=== PATIENT | female | born 1960 | race Caucasian/White ===

== ENCOUNTER 2016-11-04 11:24 | Emergency (ER) | payer MEDICARE, OTHER ==
[~2016-11-04] VITALS: Ht 157.5 cm; Wt 93.0 kg
[~2016-11-04 11:24] MED LIST: CLON.1 PO; CLON1TAB PO; METO50TA PO; MEVA40TA PO; PERC7.5T13 PO; TRAZ300T2 PO; VITA500015 PO; VORT20TA PO; Z.0.OXYGENDME NC
[2016-11-04 11:26] VITALS: BP 142/85; PULSE 92; RESP 20; TEMP 97.9; O2SAT 92
[2016-11-04] MEDS ORDERED: SODIUM CHLOR 0.9% 1000 ML INJ 1,000 ML IV SCH (11:54)
--- NOTE | 2016-11-04 11:57 | PD ---
HPI Chief Complaint: GI Complaint Time Seen by Provider: 11:57 Travel History International Travel<30 days: No Contact w/Intl Traveler<30days: No Traveled to known affect area: No History of Present Illness HPI 56-year-old female presents to the emergency department with 3 week history of constipation, generalized weakness, and worsening inability to keep down solids. Patient is status post gastric bypass in May 2016. Patient states she is able to drink fluids without difficulty, but any type of solids are not tolerated. Dr. Jean performed a gastric bypass in May 2016. Patient saw him approximately one month ago. Patient states he started to have symptoms at that time but didn't report it to him. Patient denies fever, chills , or urinary symptoms. Patient denies chest pain or shortness of breath. PFSH Past Medical History Blood Disorders: No Bipolar Disorder: Yes (DX 5-6 MONTHS AGO BY [facility]) Anxiety: Yes Depression: Yes Cancer: No Cardiovascular Problems: No Diabetes: No Diminished Hearing: No Endocrine: No Genitourinary: No Hepatitis: No Hiatal Hernia: No Hypertension: Yes (PT STATES SHE SEES DR. GATES AND TAKES CLONIDINE) Immune Disorder: No Musculoskeletal: Yes (NECK, BACK, ARTHRITIS) Neurologic: No Psychiatric: Yes (PT STATES DEPRESSION AND ANXIETY) Reproductive: No Respiratory: Yes (SLEEP APNEA, C PAP) Immunizations Current: Yes Schizophrenia: Yes Thyroid Disease: No ?: Not Menopausal: No : 2 Para: 2 Miscarriage: 2 : 1 Dilation and Curettage (D&C): Yes (WITH MY MISCARRIAGE) Past Surgical History Abdominal Surgery: Yes (CHOLECYSTECTOMY) AICD: No Section: Yes Cholecystectomy: Yes (GALLBLADDER REMOVED) Joint Replacement: No Pacemaker: No Tonsillectomy: Yes Social History Alcohol Use: Yes (DRANK A COUPLE (7) HEINIKINS AND A QUART OF BEER) Tobacco Use: Yes Substance Use: Yes (ETOH,COCAINE) Allergies-Medications (Allergen,Severity, Reaction): Coded Allergies: No Known Allergies (Unverified , 11/04/16) Reported Meds & Prescriptions Reported Meds & Active Scripts Active Reported Vitamin B-12 (Cyanocobalamin) 1,000 Mcg Tab 1,000 Mcg PO DAILY Calcium 500 Mg Tab 1,000 Mg PO HS [Sleeping Pill] 1 Tab PO HS PRN Percocet (Oxycodone-Acetaminophen) 7.5-325 mg Tab 1 Tab PO TID PRN Metoprolol Tartrate 50 Mg Tab 50 Mg PO BID Lovastatin 40 Mg Tab 40 Mg PO HS Catapres (Clonidine) 0.1 Mg Tab 0.2 Mg PO HS Catapres (Clonidine) 0.1 Mg Tab 0.1 Mg PO DAILY Klonopin (Clonazepam) 1 Mg Tab 1 Mg PO BID Vitamin D3 (Cholecalciferol) 5,000 Unit Cap 5,000 Units PO DAILY Review of Systems Except as stated in HPI: all other systems reviewed are Neg General / Constitutional: No: Fever Eyes: No: Visual changes HENT: No: Headaches Cardiovascular: No: Chest Pain or Discomfort Respiratory: No: Shortness of Breath Gastrointestinal: Positive: Nausea, Vomiting, Abdominal Pain (with solid food.) Genitourinary: No: Dysuria Musculoskeletal: No: Pain Skin: No Rash Neurologic: No: Weakness Psychiatric: No: Depression Endocrine: No: Polydipsia Hematologic/Lymphatic: No: Easy Bruising Physical Exam Narrative GENERAL: Patient appears in no acute distress. SKIN: Warm and dry. Normal color. Somewhat poor turgor. Mouth tenting. HEAD: Atraumatic. Normocephalic. EYES: Pupils equal and round. No scleral icterus. No injection or drainage. ENT: No nasal bleeding or discharge. Mucous membranes pink and moist. NECK: Trachea midline. No JVD. CARDIOVASCULAR: Regular rate and rhythm. RESPIRATORY: No accessory muscle use. Clear to auscultation. Breath sounds equal bilaterally. GASTROINTESTINAL: Abdomen soft, non-tender, nondistended. Hepatic and splenic margins not palpable. MUSCULOSKELETAL: Extremities without clubbing, cyanosis, or edema. No obvious deformities. NEUROLOGICAL: Awake and alert. No obvious cranial nerve deficits. Motor grossly within normal limits. Five out of 5 muscle strength in the arms and legs. Normal speech. PSYCHIATRIC: Appropriate mood and affect; insight and judgment normal. Data Data Last Documented VS Vital Signs Date Time Temp Pulse Resp B/P Pulse Ox O2 Delivery O2 Flow Rate FiO2 11/04/16 14:04 82 16 141/78 96 Room Air 11/04/16 11:26 97.9 Orders Complete Blood Count With Diff (11/04/16 11:54) Comprehensive Metabolic Panel (11/04/16 11:54) Lipase (11/04/16 11:54) Prothrombin Time / Inr (Pt) (11/04/16 11:54) Act Partial Throm Time (Ptt) (11/04/16 11:54) Urinalysis - C+S If Indicated (11/04/16 11:54) Iv Access Insert/Monitor (11/04/16 11:54) Ecg Monitoring (11/04/16 11:54) Oximetry (11/04/16 11:54) NPO (11/04/16 11:54) Sodium Chlor 0.9% 1000 Ml Inj (Ns 1000 M (11/04/16 11:54) Sodium Chloride 0.9% Flush (Ns Flush) (11/04/16 12:00) Electrocardiogram (11/04/16 11:54) Upper Gi Series With [employer] Field Assistant (11/04/16 ) Urine Culture (11/04/16 12:00) Labs Laboratory Tests Test 11/04/16 12:00 White Blood Count 5.0 TH/MM3 Red Blood Count 4.14 MIL/MM3 Hemoglobin 13.2 GM/DL Hematocrit 39.5 % Mean Corpuscular Volume 95.3 FL Mean Corpuscular Hemoglobin 31.8 PG Mean Corpuscular Hemoglobin 33.4 % Concent Red Cell Distribution Width 15.0 % Platelet Count 159 TH/MM3 Mean Platelet Volume 8.8 FL Neutrophils (%) (Auto) 57.4 % Lymphocytes (%) (Auto) 31.6 % Monocytes (%) (Auto) 8.7 % Eosinophils (%) (Auto) 1.5 % Basophils (%) (Auto) 0.8 % Neutrophils # (Auto) 2.9 TH/MM3 Lymphocytes # (Auto) 1.6 TH/MM3 Monocytes # (Auto) 0.4 TH/MM3 Eosinophils # (Auto) 0.1 TH/MM3 Basophils # (Auto) 0.0 TH/MM3 CBC Comment DIFF FINAL Differential Comment Prothrombin Time 11.6 SEC Prothromb Time International 1.0 RATIO Ratio Activated Partial 30.3 SEC Thromboplast Time Urine Color DARK-YELLOW Urine Turbidity HAZY Urine pH 5.5 Urine Specific [place] 1.033 Urine Protein 30 mg/dL Urine Glucose (UA) NEG mg/dL Urine Ketones TRACE mg/dL Urine Occult Blood NEG Urine Nitrite NEG Urine Bilirubin NEG Urine Urobilinogen 4.0 MG/DL Urine Leukocyte Esterase LARGE Urine RBC 4 /hpf Urine WBC 49 /hpf Urine Squamous Epithelial 16 /hpf Cells Urine Transitional Epithelial 5 /hpf Cells Urine Renal Epithelial Cells <1 /hpf Urine Bacteria MOD /hpf Urine Mucus MANY /lpf Microscopic Urinalysis Comment CULTURE INDICATED Sodium Level 141 MEQ/L Potassium Level 3.6 MEQ/L Chloride Level 105 MEQ/L Carbon Dioxide Level 30.9 MEQ/L Anion Gap 5 MEQ/L Blood Urea Nitrogen 10 MG/DL Creatinine 0.63 MG/DL Estimat Glomerular Filtration 98 ML/MIN Rate Random Glucose 83 MG/DL Calcium Level 8.6 MG/DL Total Bilirubin 0.4 MG/DL Aspartate Amino Transf 13 U/L (AST/SGOT) Alanine Aminotransferase 28 U/L (ALT/SGPT) Alkaline Phosphatase 99 U/L Total Protein 6.3 GM/DL Albumin 3.0 GM/DL Lipase 33 U/L [facility] Medical Decision Making Medical Screen Exam Complete: Yes Emergency Medical Condition: Yes Differential Diagnosis Status post gastric bypass. Increasing intolerance to solid foods. Nausea, vomiting, constipation. Narrative Course Patient is medically stable at time of exam. Labs ordered including CBC, CMP, PT PTT and INR. Urinalysis, lipase. Patient is given normal sodium bolus of 1000 mL IV. Call was placed to Dr. Marroquin who is covering for Dr. Jean and the patient is discussed. Dr. Marroquin recommends an upper GI series to evaluate the patient. Patient is noted to have a probable urinary tract infection. Urine culture is pending. Labs are unremarkable. Upper GI is within normal limits. There is no sign of obstruction or significant constipation per radiologist. 1600 hrs. call was placed to Dr. Marroquin, and patient is discussed. Patient is to return to her liquid gastric bypass diet. Patient is take Omnicef 400 mg per 5 mL suspension twice daily for 7 days. Patient is to call Dr. Jean's office for follow-up in the next week. Patient to follow with her primary care physician regarding her urinary tract infection in the next 1-2 weeks. Patient may return the emergency Department with any worsening symptoms as needed. Diagnosis Primary Impression: Urinary tract infection Qualified Code: N30.00 - Acute cystitis without hematuria Additional Impressions: Abdominal pain Qualified Code: R10.13 - Epigastric pain Nausea & vomiting Qualified Code: R11.2 - Non-intractable vomiting with nausea, unspecified vomiting type Status post gastric bypass for obesity Referrals: Saw Ortiz MD call for appointment Primary Care Physician Patient Instructions: Dysuria (ED), General Instructions Additional Instructions: Patient is to return to her liquid gastric bypass diet. Patient is take Omnicef 400 mg per 5 mL suspension twice daily for 7 days. Patient is to call Dr. Jean's office for follow-up in the next week. Patient to follow with her primary care physician regarding her urinary tract infection in the next 1-2 weeks. Patient may return the emergency Department with any worsening symptoms as needed. Disposition: 01 DISCHARGE HOME Condition: Stable Eduardo Malloy Nov 04, 2016 11:57
[2016-11-04] MEDS ORDERED: SODIUM CHLORIDE 0.9% FLUSH 5 ML FLUSH IVF PRN (12:00)
[2016-11-04 12:25] LABS: AUTOMATED NEUTROPHIL # 2.9 TH/MM3 (1.8-7.7); BASOPHIL % 0.8 % (0.0-2.0); EOSINOPHIL # 0.1 TH/MM3 (0-0.4); EOSINOPHIL % 1.5 % (0.0-4.0); HEMATOCRIT 39.5 % (35.0-46.0); HEMO FLAGS DIFF FINAL; LYMPH % 31.6 % (9.0-44.0); LYMPHOCYTE # 1.6 TH/MM3 (1.0-4.8); MEAN CELL VOLUME 95.3 FL (80.0-100.0); MEAN CORPUSCULAR HEMOGLOBIN 31.8 PG (27.0-34.0); MEAN CORPUSCULAR HGB CONC 33.4 % (32.0-36.0); MONO % 8.7 % (0.0-8.0); NEUT % 57.4 % (16.0-70.0); PLATELET COUNT 159 TH/MM3 (150-450); RED BLOOD COUNT 4.14 MIL/MM3 (4.00-5.30)
[2016-11-04 12:30] LABS: BACTERIA, URINE MOD /hpf; BLOOD, URINE NEG (NEG); COMMENT (UR) CULTURE INDICATED; CULTURE IF INDICATED CULTURE INDICATED; GLUCOSE,URINE NEG (NEG); KETONE, URINE TRACE mg/dL (NEG); MUCUS URINE MANY /lpf (OCC); NITRITE,URINE NEG (NEG); PH, URINE 5.5 (5.0-8.5); RENAL EPITHELIAL CELLS <1 /hpf; SQUAMOUS EPITHELIAL CELL URINE 16 /hpf (0-5); TRANSITIONAL EPI CELLS, URINE 5 /hpf; URINE COLOR DARK-YELLOW (YELLW/STRAW)
[2016-11-04 12:36] LABS: APTT (PATIENT) 30.3 SEC (24.3-30.1); PROTHROMBIN TIME - PATIENT 11.6 SEC (9.8-11.6)
[2016-11-04 12:45] LABS: ALT (GPT) 28 U/L (10-53); ANION GAP 5 MEQ/L (5-15); AST (GOT) 13 U/L (15-37); BICARBONATE 30.9 MEQ/L (21.0-32.0); BLOOD UREA NITROGEN 10 MG/DL (7-18); CHLORIDE 105 MEQ/L (98-107); GLOMERULAR FILTRATION RATE 98 ML/MIN (>89); POTASSIUM 3.6 MEQ/L (3.5-5.1); SODIUM (NA) 141 MEQ/L (136-145)
[2016-11-04 12:48] LABS: ALKALINE PHOSPHATASE 99 U/L (45-117); TOTAL BILIRUBIN ADULT 0.4 MG/DL (0.2-1.0)
[2016-11-04] MEDS ORDERED: CLON1 PO (12:52)
[2016-11-04] MEDS ORDERED: CLON.1 PO ×2 (12:52)
[2016-11-04] MEDS ORDERED: LOVA40TA PO (12:52)
[2016-11-04] MEDS ORDERED: CHOL5000 PO (12:52)
[2016-11-04] MEDS ORDERED: SLEEPING PILL PO (12:52)
[2016-11-04] MEDS ORDERED: CALC500T42 PO (12:52)
[2016-11-04] MEDS ORDERED: METO50TA PO (12:52)
[2016-11-04] MEDS ORDERED: PERC7.5T13 PO (12:52)
[2016-11-04] MEDS ORDERED: VITA10002 PO (12:53)
[2016-11-04 14:04] VITALS: BP 141/78; PULSE 82; RESP 16; O2SAT 96
--- NOTE | 2016-11-04 15:39 | RADRPT ---
EXAM DATE/TIME: 11/04/2016 13:02 COMPARISON: GASTROGRAFIN GI SERIES, June 15, 2016, 9:43. INDICATIONS : Pain when eating food. FLUORO TIME: 1.8 minutes IMAGE COUNT: 8 CONTRAST: 1. Gastromylene 2. Liquid E-Z Paque Barium Sulfate (60% w/v, 41% w.w) MEDICAL HISTORY : Patient reports inability to eat for the past 2 weeks. She denies dysphagia but reports food comes ba ck with associated upper abdominal pain. She has a history of gastric bypass surgery in June. SURGICAL HISTORY : Cholecystectomy. Gastric bypass. ENCOUNTER: Initial ACUITY: 2 weeks PAIN SCORE: 4/10 LOCATION: Midline chest. FINDINGS: Lunch Cook view of the abdomen demonstrates cholecystectomy clips as well as a bowel staple line and left upper quadrant consistent with prior Carline-en-Y gastric bypass surgery. Gastroview followed by thin li quid barium was administered orally in an upright position. Contrast flowed easily through the esopha mitzy, into the gastric pouch, and into the jejunal Carline limb. No abnormality is identified. Delayed ov erhead images demonstrate no abnormality. No reflux is observed. CONCLUSION: Normal upper GI examination in this patient post Carline-en-Y gastric bypass surgery. Urbano Warren MD on November 04, 2016 at 15:36 Board Certified Radiologist. This report was verified electronically.
[2016-11-04] MEDS ORDERED: CEFD250S PO (16:34)
--- NOTE | 2016-11-06 21:35 | EKG ---
Date Performed: 11/04/2016 Time Performed: 12:36:51 PTAGE: 56 years EKG: Sinus rhythm LOW QRS VOLTAGE IN PRECORDIAL LEADS BORDERLINE ECG NO PREVIOUS TRACING DOCTOR: Vish Griffith Interpretating Date/Time 11/06/2016 21:34:01
== END 2016-11-04 17:16 | disposition home or self-care (01) ==
LOC: NEPC 11:24
DX: N30.00 Acute cystitis without hematuria (principal); R10.13 Epigastric pain; R11.2 Nausea with vomiting, unspecified; R53.1 Weakness; R94.31 Abnormal electrocardiogram [ECG] [EKG]; I10 Essential (primary) hypertension; G47.30 Sleep apnea, unspecified; Z98.84 Bariatric surgery status; Z86.59 Personal history of other mental and behavioral disorders; Z87.39 Personal history of other diseases of the musculoskeletal system and connective tissue
CPT/HCPCS: 74241; 80053; 81001; 83690; 85025; 85610; 85730; 87086; 93005; 99284; J7030

== ENCOUNTER 2017-08-31 09:53 | Emergency (ER) | payer MEDICARE, OTHER ==
[~2017-08-31] VITALS: Ht 157.5 cm; Wt 65.0 kg
[~2017-08-31 09:53] MED LIST changes: +CALC500T42 PO; +CEFD250S PO; +CHOL5000 PO; +CLON1 PO; -CLON1TAB PO; +LOVA40TA PO; -MEVA40TA PO; +SLEEPING PILL PO; -TRAZ300T2 PO; +VITA10002 PO; -VITA500015 PO; -VORT20TA PO; -Z.0.OXYGENDME NC
[2017-08-31 09:55] VITALS: BP 131/62; PULSE 67; RESP 15; TEMP 99.2; O2SAT 98
[2017-08-31] MEDS ORDERED: AMIT75TA2 PO (10:20)
[2017-08-31] MEDS ORDERED: DOXE10CA PO (10:20)
[2017-08-31] MEDS ORDERED: CIPR500T2 PO (10:20)
[2017-08-31] MEDS ORDERED: LORA0.5T PO (10:20)
[2017-08-31] MEDS ORDERED: SODIUM CHLOR 0.9% 1000 ML INJ 1,000 ML IV SCH (10:34)
[2017-08-31] MEDS ORDERED: ONDANSETRON HCL 4 MG/2 ML VIAL IVP ONE (10:45)
[2017-08-31] MEDS ORDERED: MORPHINE SULFATE 4 MG/ML INJ IV PUSH ONE (10:45)
[2017-08-31] MEDS ORDERED: SODIUM CHLORIDE 0.9% FLUSH 10 ML FLUSH IV FLUSH PRN (10:45)
[2017-08-31 11:44] LABS: AUTOMATED NEUTROPHIL # 3.2 TH/MM3 (1.8-7.7); BASOPHIL % 0.5 % (0.0-2.0); EOSINOPHIL % 0.9 % (0.0-4.0); HEMO FLAGS DIFF FINAL; LYMPH % 28.1 % (9.0-44.0); LYMPHOCYTE # 1.4 TH/MM3 (1.0-4.8); MEAN CELL VOLUME 94.1 FL (80.0-100.0); MONO % 5.9 % (0.0-8.0); NEUT % 64.6 % (16.0-70.0); PLATELET COUNT 176 TH/MM3 (150-450); RED BLOOD COUNT 4.14 MIL/MM3 (4.00-5.30); RED CELL DISTRIBUTION WIDTH 14.2 % (11.6-17.2); WHITE BLOOD COUNT 4.9 TH/MM3 (4.0-11.0)
[2017-08-31 11:45] LABS: APTT (PATIENT) 28.2 SEC (24.3-30.1); PROTHROMBIN TIME - PATIENT 11.1 SEC (9.8-11.6)
[2017-08-31 12:10] LABS: ALT (GPT) 85 U/L (10-53); ANION GAP 4 MEQ/L (5-15); AST (GOT) 40 U/L (15-37); BICARBONATE 31.8 MEQ/L (21.0-32.0); BLOOD UREA NITROGEN 5 MG/DL (7-18); CHLORIDE 103 MEQ/L (98-107); GLOMERULAR FILTRATION RATE 122 ML/MIN (>89); POTASSIUM 3.7 MEQ/L (3.5-5.1); SODIUM (NA) 139 MEQ/L (136-145)
[2017-08-31 12:12] LABS: ALKALINE PHOSPHATASE 167 U/L (45-117); TOTAL BILIRUBIN ADULT 0.3 MG/DL (0.2-1.0)
[2017-08-31] MEDS ORDERED: IOHEXOL 350 MG/ML 10 ML VIAL (for RAD DIAG) IVCONTRAST ONE (12:45)
--- NOTE | 2017-08-31 12:50 | RADRPT ---
EXAM DATE/TIME: 08/31/2017 12:36 [facility] COMPARISON: No previous studies available for comparison. INDICATIONS : Epigastric pain with nausea, vomiting. IV CONTRAST: 97 cc Omnipaque 350 (iohexol) IV ORAL CONTRAST: No oral contrast ingested. RADIATION DOSE: 7.63 CTDIvol (mGy) MEDICAL HISTORY : Hypertension. SURGICAL HISTORY : Cholecystectomy. Gastric bypass. C section ENCOUNTER: Initial ACUITY: 2 weeks PAIN SCALE: 9/10 LOCATION: epigastric TECHNIQUE: Volumetric scanning of the abdomen and pelvis was performed. Using automated exposure control and ad justment of the mA and/or kV according to patient size, radiation dose was kept as low as reasonably achievable to obtain optimal diagnostic quality images. DICOM format image data is available electro nically for review and comparison. FINDINGS: LOWER LUNGS: The visualized lower lungs are clear. LIVER: Homogeneous density without lesion. There is no dilation of the biliary tree. There is fatty infiltr ation of the liver. The gallbladder has been removed. SPLEEN: Normal size without lesion. PANCREAS: Within normal limits. KIDNEYS: Normal in size and shape. There is no mass, stone or hydronephrosis. ADRENAL GLANDS: Within normal limits. VASCULAR: There is no aortic aneurysm. BOWEL/MESENTERY: The stomach, small bowel, and colon demonstrate no acute abnormality. There is no free intraperitone al air or fluid. Postsurgical changes are noted at the level of the stomach. No evidence of obstructi on. No inflammatory changes are seen. There is stool throughout the colon. ABDOMINAL WALL: Within normal limits. RETROPERITONEUM: There is no lymphadenopathy. BLADDER: No wall thickening or mass. REPRODUCTIVE: Within normal limits. INGUINAL: There is no lymphadenopathy or hernia. MUSCULOSKELETAL: Within normal limits for patient age. CONCLUSION: 1. Diffuse fatty infiltration of the liver. 2. Otherwise, unremarkable examination for patient's age. Basilio Kong MD on August 31, 2017 at 12:45 Board Certified Radiologist. This report was verified electronically.
[2017-08-31] MEDS ORDERED: DICYCLOMINE HCL 10 MG CAP PO ONE (13:00)
[2017-08-31] MEDS ORDERED: LIDOCAINE VISCOUS 2% SOLN 15 ML UDC PO ONE (13:00)
[2017-08-31] MEDS ORDERED: ALUMINUM/MAGNESIUM/SIMETH 30 ML CUP PO ONE (13:00)
[2017-08-31 13:07] LABS: BLOOD, URINE NEG (NEG); GLUCOSE,URINE 100 mg/dL (NEG); KETONE, URINE NEG (NEG); NITRITE,URINE POS (NEG)
[2017-08-31 13:15] LABS: URINE COLOR AMBER (YELLW/STRAW)
[2017-08-31 13:26] LABS: BACTERIA, URINE FEW /hpf; RBC, URINE 0-3 /hpf (0-3)
[2017-08-31 13:27] LABS: COMMENT (UR) CULTURE INDICATED; CULTURE IF INDICATED CULTURE INDICATED; MUCUS URINE FEW /lpf (OCC)
[2017-08-31] MEDS ORDERED: DICY10 PO (13:40)
--- NOTE | 2017-08-31 13:40 | PD ---
HPI Chief Complaint: Abdominal Pain Time Seen by Provider: 10:23 Travel History International Travel<30 days: No Contact w/Intl Traveler<30days: No Traveled to known affect area: No History of Present Illness HPI Patient is a 57-year-old female comes in complaining of epigastric abdominal pain. She says she has had the pain for about 2 weeks. She says she has not been able to eat very much because she is not very hungry. She is drinking fluids. She does have some nausea, has not really had any vomiting. She says it started after she was drinking alcohol 2 weeks ago, which is atypical for her. She denies fever or chills. She recently had gastric bypass surgery and is losing weight appropriately. She says she is having normal bowel movements. PFSH Past Medical History Blood Disorders: No Bipolar Disorder: Yes (DX 5-6 MONTHS AGO BY [facility]) Anxiety: Yes Depression: Yes Cancer: No Cardiovascular Problems: No Diabetes: No Diminished Hearing: No Endocrine: No Gastrointestinal Disorders: Yes ("HEARTBURN") Genitourinary: No Hepatitis: No Hiatal Hernia: No Hypertension: Yes (PT STATES SHE SEES DR. GATES AND TAKES CLONIDINE) Immune Disorder: No Medical other: No Musculoskeletal: Yes (NECK, BACK, ARTHRITIS) Neurologic: No Psychiatric: Yes (PT STATES DEPRESSION AND ANXIETY) Reproductive: No Respiratory: Yes (SLEEP APNEA, C PAP) Immunizations Current: Yes Schizophrenia: Yes Thyroid Disease: No Menopausal: No : 2 Para: 2 Miscarriage: 2 : 1 Dilation and Curettage (D&C): Yes (WITH MY MISCARRIAGE) Past Surgical History Abdominal Surgery: Yes (CHOLECYSTECTOMY) AICD: No Section: Yes Cholecystectomy: Yes (GALLBLADDER REMOVED) Joint Replacement: No Pacemaker: No Tonsillectomy: Yes Other Surgery: Yes Social History Alcohol Use: Yes (DRANK A COUPLE (7) HEINIKINS AND A QUART OF BEER) Tobacco Use: Yes Substance Use: Yes (HX COCAINE) Allergies-Medications (Allergen,Severity, Reaction): Coded Allergies: No Known Allergies (Unverified Allergy, Unknown, 08/31/17) Reported Meds & Prescriptions Reported Meds & Active Scripts Active Reported Ciprofloxacin (Ciprofloxacin HCl) 500 Mg Tab 500 Mg PO TID Doxepin (Doxepin HCl) 10 Mg Cap 10 Mg PO HS Lorazepam 0.5 Mg Tab 0.5 Mg PO HS PRN Amitriptyline (Amitriptyline HCl) 75 Mg Tab 75 Mg PO HS Vitamin B-12 (Cyanocobalamin) 1,000 Mcg Tab 1,000 Mcg PO DAILY Metoprolol Tartrate 50 Mg Tab 50 Mg PO BID Lovastatin 40 Mg Tab 40 Mg PO HS Catapres (Clonidine) 0.1 Mg Tab 0.1 Mg PO TID Review of Systems Except as stated in HPI: all other systems reviewed are Neg General / Constitutional: No: Fever, Chills HENT: No: Headaches, Lightheadedness Cardiovascular: No: Chest Pain or Discomfort Respiratory: No: Shortness of Breath Gastrointestinal: Positive: Nausea, Abdominal Pain Musculoskeletal: No: Myalgias, Weakness Skin: No Rash, No Change in Pigmentation Neurologic: No: Weakness, Dizziness Physical Exam Narrative GENERAL: Awake and alert, in no acute distress. SKIN: Focused skin assessment warm/dry. HEAD: Atraumatic. Normocephalic. EYES: Pupils equal and round. No scleral icterus. ENT: No nasal bleeding or discharge. Mucous membranes pink and moist. NECK: Trachea midline. No JVD. CARDIOVASCULAR: Regular rate and rhythm. No murmur appreciated. RESPIRATORY: No accessory muscle use. Clear to auscultation. Breath sounds equal bilaterally. GASTROINTESTINAL: Abdomen soft, nondistended. Tender to palpation of the epigastric area. No rebound or guarding. MUSCULOSKELETAL: No obvious deformities. No clubbing. No cyanosis. No edema. NEUROLOGICAL: Awake and alert. No obvious cranial nerve deficits. Motor grossly within normal limits. Normal speech. PSYCHIATRIC: Appropriate mood and affect; insight and judgment normal. Data Data Last Documented VS Vital Signs Date Time Temp Pulse Resp B/P (MAP) Pulse Ox O2 Delivery O2 Flow Rate FiO2 08/31/17 09:55 99.2 67 15 131/62 (85) 98 Orders Orders Complete Blood Count With Diff (08/31/17 10:34) Comprehensive Metabolic Panel (08/31/17 10:34) Lipase (08/31/17 10:34) Prothrombin Time / Inr (Pt) (08/31/17 10:34) Act Partial Throm Time (Ptt) (08/31/17 10:34) Urinalysis - C+S If Indicated (08/31/17 10:34) Ct Abd/Pel W Iv Contrast(Rout) (08/31/17 10:34) Iv Access Insert/Monitor (08/31/17 10:34) Ecg Monitoring (08/31/17 10:34) Oximetry (08/31/17 10:34) Morphine Inj (Morphine Inj) (08/31/17 10:45) Ondansetron Inj (Zofran Inj) (08/31/17 10:45) Sodium Chlor 0.9% 1000 Ml Inj (Ns 1000 M (08/31/17 10:34) Sodium Chloride 0.9% Flush (Ns Flush) (08/31/17 10:45) Iohexol 350 Inj (Omnipaque 350 Inj) (08/31/17 12:45) Dicyclomine (Bentyl) (08/31/17 13:00) Al-Mag Hy-Si 40-40-4 Mg/Ml Liq (Mag-Al P (08/31/17 13:00) Lidocaine 2% Viscous (Xylocaine 2% Visco (08/31/17 13:00) Urine Culture (08/31/17 12:10) Labs Laboratory Tests Test 08/31/17 10:45 08/31/17 12:10 White Blood Count 4.9 TH/MM3 Red Blood Count 4.14 MIL/MM3 Hemoglobin 13.3 GM/DL Hematocrit 39.0 % Mean Corpuscular Volume 94.1 FL Mean Corpuscular Hemoglobin 32.0 PG Mean Corpuscular Hemoglobin Concent 34.0 % Red Cell Distribution Width 14.2 % Platelet Count 176 TH/MM3 Mean Platelet Volume 9.5 FL Neutrophils (%) (Auto) 64.6 % Lymphocytes (%) (Auto) 28.1 % Monocytes (%) (Auto) 5.9 % Eosinophils (%) (Auto) 0.9 % Basophils (%) (Auto) 0.5 % Neutrophils # (Auto) 3.2 TH/MM3 Lymphocytes # (Auto) 1.4 TH/MM3 Monocytes # (Auto) 0.3 TH/MM3 Eosinophils # (Auto) 0.0 TH/MM3 Basophils # (Auto) 0.0 TH/MM3 CBC Comment DIFF FINAL Differential Comment Prothrombin Time 11.1 SEC Prothromb Time International Ratio 1.0 RATIO Activated Partial Thromboplast Time 28.2 SEC Blood Urea Nitrogen 5 MG/DL Creatinine 0.52 MG/DL Random Glucose 94 MG/DL Total Protein 6.6 GM/DL Albumin 3.2 GM/DL Calcium Level 8.6 MG/DL Alkaline Phosphatase 167 U/L Aspartate Amino Transf (AST/SGOT) 40 U/L Alanine Aminotransferase (ALT/SGPT) 85 U/L Total Bilirubin 0.3 MG/DL Sodium Level 139 MEQ/L Potassium Level 3.7 MEQ/L Chloride Level 103 MEQ/L Carbon Dioxide Level 31.8 MEQ/L Anion Gap 4 MEQ/L Estimat Glomerular Filtration Rate 122 ML/MIN Lipase 45 U/L Urine Color HUGO Urine Turbidity CLEAR Urine pH 7.0 Urine Specific [place] 1.011 Urine Protein 30 mg/dL Urine Glucose (UA) 100 mg/dL Urine Ketones NEG mg/dL Urine Occult Blood NEG Urine Nitrite POS Urine Bilirubin NEG Urine Urobilinogen 1.0 MG/DL Urine Leukocyte Esterase LARGE Urine RBC 0-3 /hpf Urine WBC 9-14 /hpf Urine Squamous Epithelial Cells 6-8 /hpf Urine Bacteria FEW /hpf Urine Mucus FEW /lpf Microscopic Urinalysis Comment CULTURE INDICATED MDM Medical Decision Making Medical Screen Exam Complete: Yes Emergency Medical Condition: Yes Medical Record Reviewed: Yes Differential Diagnosis Pancreatitis versus gastritis versus colitis versus UTI versus GERD Narrative Course Patient is a 57-year-old female who comes in complaining of a testicle abdominal pain. Exam shows mild tenderness to the epigastric area. No rebound or guarding. IV established, labs sent. Labs show slight elevation in AST and ALTs, no other acute abnormalities. Urinalysis is positive for UTI. Patient is already taking Cipro, she is on day 2. She'll be advised to continue to take this. CT Abdomen and pelvis shows fatty infiltration of the liver, no other acute abnormalities. Patient informed of these results. Last 24 hours Impressions Abdomen/Pelvis CT 08/31/17 1034 Signed Impressions: Service Date/Time: Thursday, August 31, 2017 12:36 - CONCLUSION: 1. Diffuse fatty infiltration of the liver. 2. Otherwise, unremarkable examination for patient's age. Basilio Kong MD She is given a GI cocktail and Bentyl. Given IV fluids, morphine, Zofran. She says she is feeling better. She'll be discharged home with prescription for Bentyl. She is advised to drink plenty of fluids. Eat a bland diet and follow- up with her doctors. Advised to return to the ED as needed for any worsening symptoms. Diagnosis Primary Impression: Abdominal pain Qualified Codes: R10.13 - Epigastric pain Patient Instructions: Abdominal Pain (ED), General Instructions Additional Instructions: Drink plenty of fluids. Eat a bland diet. You can take Bentyl to help with spasms in her abdomen. Follow-up with your doctor. Return to the ED as needed for any worsening symptoms. Scripts Dicyclomine (Bentyl) 10 Mg Cap 10 MG PO TID Y for Bowel Management, #15 CAP 0 Refills Prov: Savana Dodge MD 08/31/17 Disposition: 01 DISCHARGE HOME Condition: Stable Savana Dodge MD Aug 31, 2017 13:40
== END 2017-08-31 13:59 | disposition home or self-care (01) ==
LOC: NEPC 09:53
DX: R10.13 Epigastric pain (principal); Z98.84 Bariatric surgery status; F20.9 Schizophrenia, unspecified
CPT/HCPCS: 74177; 80053; 81001; 83690; 85025; 85610; 85730; 87086; 96361; 96374; 96375; 99285; J2270; J2405; J7030; Q9967

== ENCOUNTER 2018-01-29 16:13 | Emergency (ER) | payer MEDICARE, OTHER ==
[~2018-01-29] VITALS: Ht 157.5 cm; Wt 60.0 kg
[~2018-01-29 16:13] MED LIST changes: +AMIT75TA2 PO; -CALC500T42 PO; -CEFD250S PO; -CHOL5000 PO; +CIPR500T2 PO; -CLON1 PO; +DICY10 PO; +DOXE10CA PO; +LORA0.5T PO; -PERC7.5T13 PO; -SLEEPING PILL PO
[2018-01-29 16:25] VITALS: BP 128/74; PULSE 87; RESP 20; TEMP 98.4; O2SAT 98
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
[2018-01-29 17:00] LABS: AUTOMATED NEUTROPHIL # 3.4 TH/MM3 (1.8-7.7); BASOPHIL % 0.7 % (0.0-2.0); EOSINOPHIL % 0.9 % (0.0-4.0); HEMATOCRIT 39.8 % (35.0-46.0); HEMOGLOBIN 13.5 GM/DL (11.6-15.3); LYMPH % 30.7 % (9.0-44.0); LYMPHOCYTE # 1.7 TH/MM3 (1.0-4.8); MEAN CORPUSCULAR HEMOGLOBIN 30.6 PG (27.0-34.0); MEAN PLATELET VOLUME 9.2 FL (7.0-11.0); MONO % 6.7 % (0.0-8.0); MONOCYTE # 0.4 TH/MM3 (0-0.9); PLATELET COUNT 236 TH/MM3 (150-450); RED BLOOD COUNT 4.43 MIL/MM3 (4.00-5.30); RED CELL DISTRIBUTION WIDTH 14.7 % (11.6-17.2); WHITE BLOOD COUNT 5.6 TH/MM3 (4.0-11.0)
[2018-01-29 17:19] LABS: ALBUMIN 3.3 GM/DL (3.4-5.0); AST (GOT) 14 U/L (15-37); BLOOD UREA NITROGEN 8 MG/DL (7-18); CALCIUM 8.6 MG/DL (8.5-10.1); CHLORIDE 105 MEQ/L (98-107); CREATININE 0.63 MG/DL (0.50-1.00); GLOMERULAR FILTRATION RATE 97 ML/MIN (>89); GLUCOSE,RANDOM 121 MG/DL (74-106); SODIUM (NA) 142 MEQ/L (136-145)
[2018-01-29 17:30] LABS: ACETAMINOPHEN LESS THAN 2.0 MCG/ML (10.0-30.0); ALKALINE PHOSPHATASE 115 U/L (45-117); ALT (GPT) 16 U/L (10-53); TOTAL BILIRUBIN ADULT 0.3 MG/DL (0.2-1.0); TOTAL PROTEIN 6.9 GM/DL (6.4-8.2)
[2018-01-29] MEDS ORDERED: POTASSIUM CHLORIDE 20 MEQ CONTROLLED RELEASE TAB PO ONE (18:00)
[2018-01-29] MEDS ORDERED: IOHEXOL 350 MG/ML 10 ML VIAL (for RAD DIAG) IVCONTRAST ONE (18:21)
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
[2018-01-29 18:54] VITALS: BP 125/78; PULSE 84; RESP 16; O2SAT 99
[2018-01-30 01:36] VITALS: BP 114/57; PULSE 70; RESP 18; O2SAT 100
[2018-01-30 05:09] VITALS: BP 125/73; PULSE 78; RESP 16; TEMP 98.3; O2SAT 97
--- NOTE | 2018-01-30 09:53 | PD ---
Physical Exam Time Seen by Provider: 09:[address] Tay has evaluated patient, lifted [place] act and cleared the patient for discharge. Data Data Last Documented VS Vital Signs Date Time Temp Pulse Resp B/P (MAP) Pulse Ox O2 Delivery O2 Flow Rate FiO2 01/30/18 05:09 98.3 78 16 125/73 (90) 97 Room Air Orders Orders Complete Blood Count With Diff (01/29/18 16:26) Comprehensive Metabolic Panel (01/29/18 16:26) Thyroid Stimulating Hormone (01/29/18 16:26) Psych Screen (01/29/18 16:26) Drug Screen, Random Urine (01/29/18 16:26) Alcohol (Ethanol) (01/29/18 16:26) Salicylates (Aspirin) (01/29/18 16:26) Tylenol (Acetaminophen) (01/29/18 16:26) Ct Brain W/O Iv Contrast(Rout) (01/29/18 16:37) Ct Cerv Spine W/O Contrast (01/29/18 16:37) Ct Abd/Pel W Iv Contrast(Rout) (01/29/18 16:37) Ct Thorax/ Chest W Iv Contrast (01/29/18 16:37) Ct Thor Spine W Iv Contrast (01/29/18 16:37) Ct Lumb Spine W Iv Contrast (01/29/18 16:37) Ct Facial Bones W/O Iv Cont (01/29/18 16:37) Iv Access Insert/Monitor (01/29/18 16:37) Potassium Chloride (Kcl) (01/29/18 18:00) Iohexol 350 Inj (Omnipaque 350 Inj) (01/29/18 18:21) Electrocardiogram (01/29/18 16:56) Diet Regular Basic (01/30/18 Breakfast) Labs Laboratory Tests Test 01/29/18 16:35 01/29/18 19:45 White Blood Count 5.6 TH/MM3 Red Blood Count 4.43 MIL/MM3 Hemoglobin 13.5 GM/DL Hematocrit 39.8 % Mean Corpuscular Volume 90.0 FL Mean Corpuscular Hemoglobin 30.6 PG Mean Corpuscular Hemoglobin Concent 34.0 % Red Cell Distribution Width 14.7 % Platelet Count 236 TH/MM3 Mean Platelet Volume 9.2 FL Neutrophils (%) (Auto) 61.0 % Lymphocytes (%) (Auto) 30.7 % Monocytes (%) (Auto) 6.7 % Eosinophils (%) (Auto) 0.9 % Basophils (%) (Auto) 0.7 % Neutrophils # (Auto) 3.4 TH/MM3 Lymphocytes # (Auto) 1.7 TH/MM3 Monocytes # (Auto) 0.4 TH/MM3 Eosinophils # (Auto) 0.0 TH/MM3 Basophils # (Auto) 0.0 TH/MM3 CBC Comment DIFF FINAL Differential Comment Blood Urea Nitrogen 8 MG/DL Creatinine 0.63 MG/DL Random Glucose 121 MG/DL Total Protein 6.9 GM/DL Albumin 3.3 GM/DL Calcium Level 8.6 MG/DL Alkaline Phosphatase 115 U/L Aspartate Amino Transf (AST/SGOT) 14 U/L Alanine Aminotransferase (ALT/SGPT) 16 U/L Total Bilirubin 0.3 MG/DL Sodium Level 142 MEQ/L Potassium Level 3.3 MEQ/L Chloride Level 105 MEQ/L Carbon Dioxide Level 27.0 MEQ/L Anion Gap 10 MEQ/L Estimat Glomerular Filtration Rate 97 ML/MIN Thyroid Stimulating Hormone 3rd Gen 1.550 uIU/ML Salicylates Level 4.1 MG/DL Acetaminophen Level LESS THAN 2.0 MCG/ML Ethyl Alcohol Level LESS THAN 3 MG/DL Urine Opiates Screen NEG Urine Barbiturates Screen NEG Urine Amphetamines Screen NEG Urine Benzodiazepines Screen NEG Urine Cocaine Screen POS Urine Cannabinoids Screen NEG MDM Supervised Visit with [facility]: No Narrative Course Dr. Tay has evaluated patient, lifted [place] act and cleared the patient for discharge. Patient contracts safety. Denies suicidal or homicidal ideations. Patient will be provided community resource packet to [facility] for follow-up. Has friends and family for support. Patient was medically cleared by alternate provider prior to psych screening. Patient has been evaluated by psychiatry and and is now cleared for discharge. Diagnosis Primary Impression: Abrasions of multiple sites Additional Impressions: Multiple contusions Substance induced mood disorder Referrals: [facility] (Out patient) [facility] Primary Care Physician Psychiatrist [facility] Patient Instructions: Abrasion (ED), Contusion in Adults (ED), General Instructions, Mood Disorders (ED), Polysubstance Abuse (ED) Additional Instruction: Contract safety to your self and others Follow-up with psychiatry Follow-up with primary care provider Follow-up with [facility] Return to the emergency department immediately with worsening of symptoms Med/Other Pt SpecificInfo: No Change to Meds, No Meds Exist/No RX given Disposition: 01 DISCHARGE HOME Condition: Stable Ewa Christian Jan 30, 2018 09:53
[2018-01-30 11:07] VITALS: BP 158/59; PULSE 85; RESP 16; TEMP 98.7; O2SAT 99
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
--- NOTE | 2018-01-30 22:52 | EKG ---
Date Performed: 01/29/2018 Time Performed: 16:56:14 PTAGE: 57 years EKG: Sinus rhythm NONSPECIFIC T-WAVE ABNORMALITY BORDERLINE ECG Since the PREVIOUS TRACING , no significant change noted DOCTOR: Dru Fuentes Interpretating Date/Time 01/30/2018 22:50:33
== END 2018-01-30 12:22 | disposition home or self-care (01) ==
LOC: NEPE 16:13 → NEPJ 01-30 12:22
DX: F19.94 Other psychoactive substance use, unspecified with psychoactive substance-induced mood disorder (principal); T14.8XXA Other injury of unspecified body region, initial encounter; I10 Essential (primary) hypertension; Y04.2XXA Assault by strike against or bumped into by another person, initial encounter; Y92.810 Car as the place of occurrence of the external cause; Z72.0 Tobacco use; Z79.899 Other long term (current) drug therapy
CPT/HCPCS: 70450; 70486; 71260; 72125; 72129; 72132; 74177; 80053; 80307; 84443; 85025; 93005; 99285; Q9967